=== PATIENT | male | born 1945 | race Caucasian/White ===

== ENCOUNTER 2016-09-01 01:15 | Day surgery (SDC) | payer MEDICARE, OTHER ==
[2016-09-01] VITALS (15 sets, daily range): BP systolic 84–132; BP diastolic 48–88; PULSE 56–92; RESP 12–20; O2SAT 93–98
[~2016-09-01] VITALS: Ht 180.3 cm; Wt 93.8 kg
[~2016-09-01 01:15] MED LIST: ASPI325T32 PO; ATRV10T PO; CHOL200047 PO; CYAN10008 PO; DOFE0.25 PO; EZET10TA PO; MAGN250T37 PO; MULT-1073 PO; TELM80TA PO; VIT1CAPS8 PO; VITA400C66 PO; WARF10TA4 PO; WARF7.5T4 PO; ZINC50TA4 PO; ZLP10T PO
[2016-09-01] MEDS ORDERED: EPHEDrine/NS 5 mg/mL 5 mL Syringe ONE (01:16)
[2016-09-01] MEDS ORDERED: Ketamine 10 mg/mL 20 mL Inj ONE (01:16)
[2016-09-01] MEDS ORDERED: Rocuronium 10 mg/mL 5 mL Inj ONE (01:16)
[2016-09-01] MEDS ORDERED: Dexamethasone 4 mg/mL Inj ONE (01:16)
[2016-09-01] MEDS ORDERED: Phenylephrine/NS 100 mCg/mL 10 mL Syringe IVPUSH ONE (01:16)
[2016-09-01] MEDS ORDERED: Ondansetron 2 mg/mL 2 mL Inj ONE (01:16)
[2016-09-01] MEDS ORDERED: Propofol 10,000 mCg/mL 20 mL Inj ONE (01:16)
[2016-09-01] MEDS ORDERED: Benzoc-Butamben-Tetraca Spray 20 Gm Spray TOPICAL PRN (06:15)
[2016-09-01 06:28] LABS: BASOPHILS % (AUTO) 0.3 % (0-3); EOSINOPHILS % (AUTO) 4.8 % (0-5); MONOCYTES % (AUTO) 13.7 % (4-12); Mean Corpuscular Hemoglobin 31.4 pg (27.0-35.0); Mean Corpuscular Volume 93.6 fL (81-100); NEUTROPHILS % (AUTO) 51.7 % (40-74); Platelet Count 246 bil/L (150-400)
--- NOTE | 2016-09-01 06:39 | NUR ---
Patient admitted for atrial fibrillation ablation with Dr mcdonald. Pt is accompanied by his .
[2016-09-01 06:47] LABS: INR 2.09 ratio
[2016-09-01] MEDS ORDERED: Lactated Ringer's 500 ML IV PRN (07:52)
[2016-09-01] MEDS ORDERED: Lactated Ringer's 1,000 ML IV SCH (07:52)
--- NOTE | 2016-09-01 07:53 | PCM.HPANE ---
Patient Data Surgeon Admitting Provider: Attending Provider:Andrew Floyd MD Primary Care Physician:Suzanna Cedillo DO Other Provider:Jordan Nuñez Anesthesia Reason for Visit Persistant Atrial Fibrillation Ht/WT & BMI Height (Feet): 5 Height (Inches): 11.00 Weight (Kilograms): 90.900 Body Mass Index 28.06 Allergies Coded Allergies: No Known Allergies (Unverified , 05/24/16) Past Anesthesia History Anesthesia History: Positive for:: Abnormal Airway, Anesthesia Reactions, Difficult Intubation, Fam Anesthesia Reaction, Fam Malignant Hypertherm, Malignant Hyperthermia Diabetes History Hx Diabetes?: No MRSA MRSA: No Medications Blood Thinner: Coumadin Hypertension Medication: No Home Meds Incl Beta Duke: No Active Scripts Dofetilide (Tikosyn)250 Mcg Nunczqy780 Mcg PO Q12 #60 CAPSULE Ref 6 Prov:Catarino Rivas PA-C 03/27/16 Reported Medications Warfarin Sodium 10 Mg Wtrpxg70 Mg PO Mondays 30 Days Ref 0 MON,TUE,Tue05/21/16 Warfarin Sodium 7.5 Mg Tablet7.5 Mg PO A 30 Days Ref 0 SAT,SUN,TU,TH02/11/16 Cyanocobalamin (Vitamin B-12) (Vitamin B-12)1,000 Mcg Tablet1,000 Mcg PO DAILY 02/11/16 Zinc Gluconate (Zinc)50 Mg Chytfi06 Mg PO DAILY 02/10/16 Ezetimibe (Zetia)10 Mg Mergxt73 Mg PO DAILY 30 Days Ref 0 02/10/16 Vitamin E Acetate (Vitamin E)400 Unit Ssztxmf317 Unit PO DAILY 02/10/16 Cholecalciferol (Vitamin D3) (Vitamin D3)2,000 Unit Capsule2,000 Unit PO DAILY 02/10/16 Vit C/Vit E/Lutein/Min/[place]-3 (Ocuvite Softgel)1 Each Capsule1 Each PO 02/10/16 Telmisartan (Micardis)80 Mg Sseume73 Mg PO DAILY 02/10/16 Magnesium Oxide 250 Mg Cpjxgq509 Mg PO DAILY 02/10/16 Atorvastatin (Lipitor)10 Mg Tab10 Mg PO DAILY Ref 0 02/10/16 Multivits-Min/FA/Lycopene/Lut (Centrum Silver Tablet)1 Each Tablet1 Each PO DAILY 02/10/16 Aspirin 325 Mg Tjyong555 Mg PO DAILY #1 BOTTLE 02/10/16 Zolpidem (Ambien)10 Mg Lszdxj03 Mg PO HS PRN For Insomnia Ref 0 02/10/16 History History of ENT Problems?: Yes HEENT History: Positive for:: Abnormal Airway Cataracts (SURGERY TO BOTH EYES) Difficult Intubation Hx of Heart Problems?: Yes Cardiovascular History: Positive for:: Edema (mainly left leg) Hypertension Irregular Heartbeat (ATRIAL FIBRILLATION) Denies:: Heart Murmur Hx of Respiratory Problem?: Yes Respiratory History: Positive for:: Dyspnea (EXERTIONAL) Denies:: Asthma Tuberculosis Hx Neurologic Problems?: No Hx of GI Problems?: No Hx of Psycho/Social Problems?: No Hx Surgeries?: Yes (CATARACT,APPENDECTOMY,SEED IMPLANT, ORCHIECTOMY) Hx Any Other Health Problems?: Yes Other History: Positive for:: Cancer (PROSTATE) Hospitalization (TIKOSYN LOADING) Denies:: Thyroid Disease History Blood Transfusions: Positive for:: Accept Blood Products? Denies:: Blood Transfuse Reaction Blood Transfusions Hx Diabetes: No Hx Alcohol Use: Yes (occassional)Hx Substance Use: No Smoking Status: Former Smoker Have You Smoked inLast 12 mo: No Stop/Bang Treated for Sleep Apnea?: Yes Do You Have a CPAP Machine?: Yes KUNAL Risk Assessment: High Risk, =/>3 Yes Risk Assessment Category Category 1A: Patient has history of documented sleep apnea, and HAS NOT received any narcotic, sedative or anesthesia administration during this stay. Category 1B: Patient has history of documented sleep apnea, and HAS received any narcotic , sedative or anesthesia administration during this stay Category 2: Patient has SUSPECTED Obstructive Sleep Apnea, and HAS received any narcotic , sedative or anesthesia administration during this stay. Category 3: Patient has SUSPECTED Obstructive Sleep Apnea and HAS NOT received narcotic, sedative or anesthesia administration during this stay. Category 4: Outpatient in Procedural Areas with known sleep apnea or who screen positive for High Risk via the STOP/BANG questionnaire. Exam Exam Vital Signs Vital Signs Date Time Temp Pulse Resp B/P Pulse Ox O2 Delivery O2 Flow Rate FiO2 09/01/16 06:31 36.5 75 20 120/82 98 Room Air General Appearance: Oriented X3 HEENT/AIRWAY: MP 2 Lungs: Normal Air Movement Heart: Regular Rate/Rhythm Meds/Labs/Diagnostics Labs Test 09/01/16 06:20 White Blood Count 6.7th/mm3 (3.8-10.1) Red Blood Count 4.56mil/mm3 (4.40-5.80) Hemoglobin 14.3g/dL (13.8-17.2) Hematocrit 42.7% (41.0-50.0) Mean Corpuscular Volume 93.6fL (81-100) Mean Corpuscular Hemoglobin 31.4pg (27.0-35.0) Mean Corpuscular Hemoglobin Concent 33.5% (32.0-37.0) Red Cell Distribution Width 13.1% (12.3-15.4) Platelet Count 246bil/L (150-400) Neutrophils (%) (Auto) 51.7% (40-74) Lymphocytes (%) (Auto) 29.2% (14-46) Monocytes (%) (Auto) 13.7% (4-12) Eosinophils (%) (Auto) 4.8% (0-5) Basophils (%) (Auto) 0.3% (0-3) Prothrombin Time 22.7sec (8.1-12.5) Prothromb Time International Ratio 2.09ratio Sodium Level 134mEq/L (134-144) Potassium Level 4.9mEq/L (3.5-5.2) Chloride Level 101mEq/L (97-108) Carbon Dioxide Level 18mmol/L (18-29) Blood Urea Nitrogen 52mg/dL (8-27) Creatinine 1.34mg/dL (0.76-1.27) Estimat Glomerular Filtration Rate 56mL/min (>59) Glucose Level 85mg/dL (60-99) Calcium Level 8.7mg/dL (8.5-10.1) Plan Impression Patient chart reviewed, patient interviewed and anesthestic plan with risks, benefits, and alternatives discussed, and informed consent obtained. ASA Physical Status: ASA3 Severe Disease Anesthetic Support Modalities: Arterial Line Anesthetic Plan: GA Bene/Risks/Altern/Consents: Yes HP Complete Prior to Induction: Yes Georgi Bonner MD Sep 01, 2016 07:53
[2016-09-01] MEDS ORDERED: HYDROmorphone 1 mg/mL Inj IVPUSH PRN (07:55)
[2016-09-01] MEDS ORDERED: fentaNYL-PF 50 mCg/mL 2 mL Inj IVPUSH PRN (07:55)
[2016-09-01] MEDS ORDERED: Dexamethasone 4 mg/mL Inj IVPUSH PRN (07:55)
[2016-09-01] MEDS ORDERED: EPHEDrine Sulfate 50 mg/mL Inj IVPUSH PRN (07:55)
[2016-09-01] MEDS ORDERED: Ondansetron 2 mg/mL 2 mL Inj IVPUSH PRN (07:55)
[2016-09-01] MEDS ORDERED: Phenylephrine 10,000 mCg/mL Inj IVPUSH PRN (07:55)
[2016-09-01] MEDS ORDERED: MetoCLOpramide 5 mg/mL 2 mL Inj IVPUSH PRN (07:55)
[2016-09-01] MEDS ORDERED: WARF5TAB7 PO (07:59)
[2016-09-01] MEDS ORDERED: Heparin 25,000 Unit/500 mL 0.45% NS Premix IV ONE (08:09)
[2016-09-01] MEDS ORDERED: 0.9% Sodium Chloride 1,000 ML ONE (08:09)
[2016-09-01] MEDS ORDERED: Heparin 1,000 Unit/mL 10 mL Inj ONE (08:46)
[2016-09-01] MEDS ORDERED: Heparin 5,000 Units/500 mL NS Premix IV ONE (09:11)
[2016-09-01] MEDS ORDERED: Heparin 1,000 Units/500 mL NS Premix IV ONE ×2 (09:21→09:28)
--- NOTE | 2016-09-01 11:30 | DRSVH ---
[facility] [address] [place] [address] Echocardiogram Report Name: SHABBIR MEDEL CStudy Date : 09/01/2016 Height: 74 in Hospital Exam Location: [facility] Weight: 218 lb Gender: Male BSA: 2.3 m2 : 1945 Age: 71 yrs BP: 103/59 mmHg Reason For Study: AFIB Ordering Physician: MARY LQUUE Performed By: Justin Valdez Interpretation Summary The left ventricle is normal in size. The ejection fraction is estimated to be 50-55%. There are no focal wall motion abnormalities. The right ventricle is normal in size and function. Right ventricular systolic pressure is estimated to be 24 mmHg plus the clinically estimated CVP which cannot be estimated on this exam. Spontaneous contrast in LA. No left atrial mass or thrombus visualized. No thrombus is detected in the left atrial appendage. There is mild mitral regurgitation. There is no other significant valvular heart disease. The ascending aorta is mildly enlarged. Procedure: Informed consent for Transesophageal Echocardiogram, and use of a contrast agent as needed, was obtained prior to the procedure. The patient was brought to the cardiac catheterization lab in a fasting state. Sedation was managed by anesthesiologist; see anesthesiology notes for details. A multifrequency, multiplane transesopheageal echocardiographic endoscope was inserted and manipulated in the standard fashion to achieve multiplane views. The transesophageal probe was passed without difficulty. A 2D transesophageal echocardiogram with spectral and color flow Doppler was performed. The usual views were obtained; basal, mid-esophageal, transgastric and aortic views. The patient's vital signs, including blood pressure, heart rate, pulse oximetry and cardiac rhythm were monitored throughout the procedure and remained stable. The patient tolerated the procedure well without evidence of orophangeal or esophageal trauma. Comparison is made with the echocardiogram of 03/24/16. The patient was in atrial fibrillation with controlled ventricular rate during the exam. There were no complications. Left Ventricle: The left ventricle is normal in size. The ejection fraction is estimated to be 50-55%. There are no focal wall motion abnormalities. Assessment of diastolic parameters indicates a relaxation abnormality of the left ventricle, consistent with normal filling pressures. Right Ventricle: The right ventricle is normal in size and function. Atria: Spontaneous contrast in LA. No left atrial mass or thrombus visualized. No thrombus is detected in the left atrial appendage. The interatrial septum is intact with no evidence for an atrial septal defect. There is no Doppler evidence for an interatrial shunt. Mitral Valve: The mitral valve is normal in structure and function. There is mild mitral regurgitation. Aortic Valve: The aortic valve is trileaflet. The aortic valve opens well. No aortic regurgitation is present. Tricuspid Valve: The tricuspid valve is normal. There is trace tricuspid regurgitation. Right ventricular systolic pressure is estimated to be 24 mmHg plus the clinically estimated CVP which cannot be estimated on this exam. Pulmonic Valve: The pulmonic valve leaflets are thin and pliable; valve motion is normal. There is no pulmonic valvular regurgitation. There is no other significant valvular heart disease. Great Vessels: The ascending aorta is mildly enlarged. The IVC has a measurement of 23 mm. Pericardium/ Pleura: The pericardium appears normal. Doppler Measurements & Calculations TR max christina: 243.3 cm/sec TR max P.7 mmHg Reading Physician:CRISTHIAN
[2016-09-01] MEDS ORDERED: Heparin 1,000 Unit/1,000mL NS Premix IV ONE (11:40)
[2016-09-01] MEDS ORDERED: Protamine Sulfate 10 mg/mL 5 mL Inj ONE (11:43)
[2016-09-01] MEDS ORDERED: HYDROcodone-APAP 5-325 mg Tablet PO PRN (12:10)
--- NOTE | 2016-09-01 13:19 | PROCED ---
[address] [address] PROCEDURE NOTE PATIENT: SHABBIR MEDEL : 1945 MR#: [id number] ADMIT: 09/01/2016 JOB ID: [id number] DATE OF SERVICE: 09/01/2016 PREOPERATIVE DIAGNOSIS(ES): Persistent atrial fibrillation. POSTOPERATIVE DIAGNOSIS(ES): Persistent atrial fibrillation. PROCEDURES PERFORMED: 1. Comprehensive electrophysiology study with left atrial pacing recording via the coronary sinus catheter. 2. Three-dimensional electroanatomic mapping using the CARTO 3 system. 3. Atrial fibrillation ablation with pulmonary vein isolation. 4. Atrial flutter ablation (cavotricuspid isthmus ablation; additional atrial focus ablation). 5. Intracardiac echocardiography. 6. Direct current cardioversion. 7. Barium esophagram. 8. Fluoroscopy. SURGEON: Andrew Floyd MD, electrophysiology attending WHEELCHAIR VAN DRIVER: Catarino Red PA-C. ANESTHESIA: General endotracheal anesthesia was undertaken for this case. INDICATION: The patient is a pleasant 71-year-old man with preserved LV function and persistent atrial fibrillation status post previous pulmonary vein isolation procedure. He has had recurrence of his dysrhythmia and is symptomatic. After discussion of the risks and benefits of catheter based mapping and ablation, he opted to proceed. PROCEDURAL DESCRIPTION: Following informed and signed consent, the patient was taken to the EP laboratory in the fasting nonsedated state, where he was prepped and draped in the usual sterile fashion. He underwent a preprocedural transesophageal echocardiogram by Dr. Moralez confirming lack of intracardiac thrombus. Please see separate dictated report for the details of that procedure. The bilateral groins were then infiltrated with 1% lidocaine; then, using modified Seldinger technique, two 8-Senegalese sheaths were inserted through the right femoral vein, a 7- and 10.5-Senegalese sheath were inserted through the left femoral vein, and under fluoroscopic guidance a deflectable decapolar catheter was advanced to the coronary sinus with the most proximal bipoles at the os of the sinus. An intracardiac echocardiography probe was advanced to the RV outflow tract. The RV outflow tract was used to visualize the pericardial space. No effusion was noted. ICE probe was pulled back into the right atrium and used to visualize the interatrial septum in preparation for transseptal puncture. Two transseptal punctures were performed in an identical fashion. Each of the short 8-Senegalese sheaths in the right groin was exchanged over a long wire for a Contreras sheath dilator and a Azusa Brockenbrough needle. The entire system was then used to engage the interatrial septum. Then, under pressure, fluoroscopic and ICE guidance, the septum was traversed twice to deploy the two Contreras sheaths into the left atrium. The patient was heparinized for a goal ACT of 350 to 400 seconds for the entire time we were in the left atrium following the first and preceding the second transseptal puncture. The resurvey of the pericardial space showed no evidence of effusion. Through the two Contreras sheaths an FJ curved bidirectional Smart Touch irrigated ablation catheter was passed, as was a 20 pole PentaRay catheter. A three-dimensional electroanatomic map of the left atrium and four pulmonary veins was created using the CorMedix 3 system. A voltage map was also created. High voltage electrograms were targeted for ablation around each of the four pulmonary veins. The patient was cardioverted with a 200 joule biphasic shock. He reverted to atrial fibrillation and had to be converted a 2nd time. Entrance and exit block was confirmed in all four pulmonary veins. We then went back into the right atrium and I exchanged the two long Contreras sheaths over a long wire for two short nine-Senegalese sheaths. We exchanged the PentaRay catheter for a 20 pole Livewire catheter which was then used to encircle the tricuspid anulus. Pacing was undertaken from the coronary sinus os and a linear series of ablations was performed from the ventricular to the IVC aspect of the cavotricuspid isthmus at the 6 o'clock position. Ultimately the medial to lateral block and lateral to medial block was confirmed. During the course of this study we did complete a comprehensive electrophysiology study with right atrial pacing recording, right ventricular pacing recording, His bundle recording, and left atrial pacing recording. The patient's heparin was reversed with protamine. All catheters and sheaths were removed. Manual pressure was held for hemostasis. The patient was transferred to the [facility] for monitoring and bedrest. COMPLICATIONS: None. ESTIMATED BLOOD LOSS: 30-40 cc. FINDINGS: 1. Baseline rhythm is atrial fibrillation. Post ablation and cardioversion he is in sinus rhythm. Bradycardic, with a heart rate in the low 40s. MI interval 92 msec, QRS 81 msec. 2. Intracardiac intervals: AH interval 99 msec, HV 52 msec. 3. Retrograde conduction: VA Wenckebach is seen at 560 msec. Atrial activation is concentric. 4. Pulmonary vein isolation as described above, with entrance and exit block in all four pulmonary veins. 5. Cavotricuspid isthmus ablation as described above with vital bidirectional block. Specifically, transisthmus time is 242 msec in medial to lateral direction and 232 msec in lateral to medial direction. IMPRESSION: Successful pulmonary vein isolation and cavotricuspid isthmus ablation. PLAN: 1. Bed rest x4 hours. 2. Continue warfarin and dofetilide. 3. Protonix 40 mg p.o. daily x1 month. 4. Monitoring overnight. 5. Anticipate discharge tomorrow. 6. Follow up with myself or Catarino Rivas in the clinic in 3-4 weeks, with a followup at the three month faina. ATTENDING STATEMENT: Andrew Floyd MD, electrophysiology attending, was present for and supervised/performed all aspects of this procedure.
--- NOTE | 2016-09-01 13:38 | NUR ---
12 lead EKG completed, patient appears to have gone from sinus bradycardia rhyth immediately upon return from stucco laborer to atrial fibrillation rhythm.Patient is anxious to know. Dr Floyd consulted and his interpretation is atrial fibrillation which is conveyed to patient.
--- NOTE | 2016-09-01 15:22 | NUR ---
Report called to Flex jamison R.N. Patient remains stable, bilateral groin access sites without bleeding or hematoma.He has eaten a late lunch without any difficulty. Remains in atrial fibrillation.
--- NOTE | 2016-09-01 16:12 | NUR ---
Pt tx to room 2001 in stable condition. Bilateral groin sites intact, remains in atrial fibrillation.Handoff at bedside to denise jamison r.N.
--- NOTE | 2016-09-01 17:10 | PCM.ANEP1 ---
Post Anesthesia Phase 1 PACU Phase 1 Assessment Vital Signs Vital Signs Date Time Temp Pulse Resp B/P Pulse Ox O2 Delivery O2 Flow Rate FiO2 09/01/16 16:35 91 09/01/16 16:17 36.7 91 16 113/76 97 Room Air 09/01/16 15:55 92 17 121/70 Room Air 09/01/16 15:00 92 16 126/81 Room Air 09/01/16 14:30 86 16 123/74 95 Room Air 09/01/16 13:59 89 18 116/70 94 Room Air 09/01/16 13:45 85 15 110/65 94 Room Air 09/01/16 13:30 87 15 112/67 93 Room Air 09/01/16 13:15 85 15 106/63 93 Room Air 09/01/16 13:00 36.9 65 19 90/55 93 Room Air 09/01/16 12:55 56 20 84/48 95 Room Air 09/01/16 12:50 62 13 89/53 95 Room Air Anesthetic Administered: GA Level of Alertness: Awake, talking Pain: No Nausea or Vomiting: No Oxygen Delivery: Room Air Lungs: Normal Air Movement Georgi Bonner MD Sep 01, 2016 17:10
--- NOTE | 2016-09-01 17:11 | PCM.ANEP2 ---
Post Anesthesia Evaluation ASA/CMS Post Anesthesia VS in Patient's Normal Range?: Yes Resp Stable; Airway Patent?: Yes CV Function & Hydration Stable: Yes Mental Status Recovered?: Yes Pain control Satisfactory?: Yes N/V Control Satisfactory?: Yes Georgi Bonner MD Sep 01, 2016 17:11
[2016-09-01] MEDS ORDERED: 0.9% Sodium Chloride 250 ML IV ONE (18:28)
[2016-09-01] MEDS ORDERED: 0.9% Sodium Chloride 250 ML IV SCH (18:30)
--- NOTE | 2016-09-01 18:42 | NUR ---
Arrived to unit Pt arrived to [facility] room 2001 at ~1615 from [facility]. Pt denies pain, groin sites stable. Pt in a flutter per auto electrical technician. Pt off bedrest at 1700 per instructions in report after blake catheter removed, Pt tolerated well and groin sites remained unchanged after ambulation.
--- NOTE | 2016-09-01 19:30 | NUR ---
Groin site and heart rhythm. Patient was resting comfortably in the chair went I came on shift. Patient reports that he is feeling well and that his groin sites are feeling well. Patient denies pain at groin site and denies back pain. No signs of bleeding or hematoma present. vitals stable and patient A/Ox4. Patient tele show possible sinus rhythm vs possible aflutter. Rhythm is difficult to interpret due to low voltage. Heart sounds are regular with accusation and CMS is intact to baseline in all extremities. Patient is at debbi in the room and reporting no needs at this time.
[2016-09-02 03:00] VITALS: BP 122/79; PULSE 79; RESP 15; O2SAT 94
[2016-09-02 03:03] LABS: INR 2.8 ratio
[2016-09-02 04:20] VITALS: PULSE 74
[2016-09-02] MEDS ORDERED: Pantoprazole 40 mg ER24 Tablet PO SCH (06:30)
[2016-09-02 07:49] VITALS: BP 122/87; PULSE 78; RESP 12; O2SAT 97
[2016-09-02 08:00] VITALS: PULSE 79
--- NOTE | 2016-09-02 08:21 | PCM.DIMED ---
Discharge Instructions Date of Service Sep 02, 2016 Dates of Hospitalization Discharge Diagnosis Discharge Diagnosis Persistent Atrial Fibrillation Atypical Atrial flutter Diet Heart Healthy Activity Other (To prevent infection, do not sit in a bath tub, hot tub or pool for one week. To prevent bleeding, do not lift, push or pull more than 10 lbs for one week.) Call your provider Fever or Chills, Bleeding, Excessive diarrhea Patient Instructions Follow-up in: Other Mid-level Provider (F9): Catarino Rivas PA-C Follow-up with Mid-level in: 5 weeks Catarino Rivas PA-C Sep 02, 2016 08:21
[2016-09-02] MEDS ORDERED: PANT40TA3 PO (08:27)
[2016-09-02] MEDS ORDERED: Vitamins C,E, Omega-3, Mineral Tablet PO SCH (08:30)
--- NOTE | 2016-09-02 08:55 | DIS ---
[address] [address] DISCHARGE SUMMARY PATIENT: SHABBIR MEDEL : 1945 MR#: [id number] ADMIT: 09/01/2016 JOB ID: [id number] DIS: REASON FOR ADMISSION: Atrial fibrillation ablation procedure. CHIEF COMPLAINT: Persistent palpitations from atrial fibrillation, with exertional dyspnea and fatigue. BRIEF HISTORY: The patient is a pleasant 71-year-old man with a structurally normal heart but persistent atrial fibrillation, for which he had undergone ablation earlier in 2016. The arrhythmia has recurred postprocedurally, and he has required two previous cardioversions and has been maintained on dofetilide 250 mcg b.i.d. Despite this, he continues to have atrial fibrillation and atypical atrial flutter, with symptoms of exertional fatigue and dyspnea. He denies lightheadedness or near syncope, chest pain or discomfort. He is anticoagulated with warfarin. He was admitted for a second atrial fibrillation ablation procedure. COURSE IN HOSPITAL: The patient was admitted through the [facility] and taken to the catheterization laboratory, where he was put under general anesthesia by the anesthesiologist. He then underwent a CLEMENT[place], and left atrial thrombus was ruled out. The ablation procedure was then undertaken and completed without incident. He was awakened from anesthesia, the femoral sheaths were removed and hemostasis was obtained. The patient was transferred back to the [facility] for recovery from sedation and then taken up to the [facility] for overnight cardiac telemetry and observation. He did well overnight, he had no bleeding from the femoral venous puncture sites and was ambulatory in the morning without difficulty. He denied any chest discomfort, shortness of breath, or pain at the puncture sites. He felt well for discharge home. DISPOSITION: The patient was discharged home in good condition with a followup appointment at the [facility] Cardiology office in one month. Also, plans are being made for a cardioversion in about two weeks. He will follow his heart healthy diet and take medications as prescribed. He was advised not to sit in a bathtub, hot tub, or pool for one week to prevent infection, nor to lift, push, or pull more than 10 pounds for one week to prevent bleeding. DISCHARGE MEDICATIONS: 1. Aspirin 325 mg daily. 2. Atorvastatin 10 mg daily. 3. Vitamin D3, 2000 units daily. 4. Vitamin B12, 1000 mcg daily. 5. Dofetilide 250 mcg q.12 h. 6. Zetia 10 mg daily. 7. Magnesium oxide 250 mg daily. 8. Multivitamin 1 daily. 9. Telmisartan 80 mg daily. 10. Vitamin C Ocuvite soft gel 1 capsule daily. 11. Vitamin E 400 units daily. 12. Warfarin 10 mg alternating with 5 mg as directed by his anticoagulation clinic. 13. Zinc 50 mg daily. 14. Zolpidem 10 mg q.h.s. FINAL DIAGNOSES: 1. Persistent atrial fibrillation. 2. Atypical atrial flutter.
--- NOTE | 2016-09-02 09:58 | NUR ---
Discharge Pt just discharged to home with family. Pt given cardiac cath booklet. Pt's IV access D/C'd and intact X2. Pt instructed to f/u with Catarino Rivas on 10/07/16 at 1600, Pt verbalized that he had started discussion with Dr. Floyd about a cardioversion outpatient and that he would f/u. Pt verbalized understanding of all discharge instructions. All belongings accompanied Pt at time of discharge.
== END 2016-09-02 09:35 | disposition home or self-care (01) ==
LOC: SOUO 01:15 → PCC 16:19 → SOUO 09-02 09:35
PROVIDERS: ATTEND Internal Medicine Cardiovascular Disease
DX: I48.1 Persistent atrial fibrillation (principal); I48.4 Atypical atrial flutter; Z79.01 Long term (current) use of anticoagulants; Z79.82 Long term (current) use of aspirin; Z79.84 Long term (current) use of oral hypoglycemic drugs
CPT/HCPCS: 36415; 80048; 85025; 85610; 92960; 93005; 93613; 93656; 93657; 93662; C1730; C1731; C1732; C1759; C1769; C1893; C1894; C8925; J1100; J1644; J2250; J2370; J2405; J2720; J7040

== ENCOUNTER 2016-09-21 01:07 | Day surgery (SDC) | payer MEDICARE, OTHER ==
[~2016-09-21] VITALS: Ht 180.3 cm; Wt 90.9 kg
[~2016-09-21 01:07] MED LIST changes: +WARF5TAB7 PO; -WARF7.5T4 PO
[2016-09-21 09:52] VITALS: BP 122/71; PULSE 75; RESP 16; O2SAT 99
[2016-09-21 09:54] LABS: BASOPHILS % (AUTO) 0.3 % (0-3); EOSINOPHILS % (AUTO) 2.8 % (0-5); MONOCYTES % (AUTO) 11.2 % (4-12); Mean Corpuscular Volume 93.8 fL (81-100); NEUTROPHILS % (AUTO) 64.5 % (40-74); Platelet Count 261 bil/L (150-400)
[2016-09-21] MEDS ORDERED: 0.9% Sodium Chloride 1,000 ML ONE (10:03)
[2016-09-21] MEDS ORDERED: Methohexital 10 mg/mL 50 mL Inj ONE (10:03)
[2016-09-21 10:11] LABS: INR 3.73 ratio
[2016-09-21 10:16] VITALS: BP 137/99; PULSE 85; RESP 16; O2SAT 99
[2016-09-21 10:19] VITALS: BP 131/69; PULSE 63; RESP 16; O2SAT 99
[2016-09-21 10:22] VITALS: BP 117/70; PULSE 61; RESP 16; O2SAT 99
[2016-09-21 10:24] VITALS: BP 105/62; PULSE 63; RESP 16; O2SAT 99
[2016-09-21 10:38] VITALS: BP 104/58; PULSE 60; RESP 16; O2SAT 99
--- NOTE | 2016-09-21 12:01 | NUR ---
Pt discharged to home, ambulatory, accompanied by spouse. Pt in SR at time of d/c, VSS. Pt's IV discontinued intact, given all discharge instructions and follow up appt. Pt had no further questions at time of d/c.
--- NOTE | 2016-09-21 20:30 | PROCED ---
[address] [address] PROCEDURE NOTE PATIENT: SHABBIR MEDEL : 1945 MR#: [id number] ADMIT: 09/21/2016 JOB ID: [id number] DATE OF SERVICE: 09/21/2016 PREOPERATIVE DIAGNOSIS(ES): Atrial fibrillation. POSTOPERATIVE DIAGNOSIS(ES): Sinus rhythm. SURGEON: Andrew Floyd MD PROCEDURES PERFORMED: Direct current cardioversion. SEDATION: 1 mg of Versed and 35 mg of Brevital were utilized for appropriate level of sedation. INDICATIONS: The patient is a pleasant 71-year-old man with recurrent atrial fibrillation status post ablation. After discussion of risks and benefits of cardioversion, he opted to proceed. PROCEDURE DESCRIPTION: Informed consent was obtained and the patient was taken to the procedure room where defibrillator patches were placed in the anterior and posterior positions. After adequate sedation, a 200 joule biphasic synchronous shock was used to convert him to sinus rhythm. He will be allowed to recover and be discharged home for close followup. COMPLICATIONS: None. ESTIMATED BLOOD LOSS: None. IMPRESSION: Successful direct current cardioversion. PLAN: 1. Recovery and discharge from [facility]. 2. Continue current medication regimen. 3. Follow up with me in clinic in four weeks. ATTENDING STATEMENT: Andrew Floyd MD, electrophysiology attending, was present for and supervised/performed all aspects of this procedure.
== END 2016-09-21 23:59 | disposition home or self-care (01) ==
LOC: SOUO 01:07
PROVIDERS: ATTEND Internal Medicine Cardiovascular Disease
DX: I48.1 Persistent atrial fibrillation (principal); Z79.899 Other long term (current) drug therapy; Z79.01 Long term (current) use of anticoagulants
CPT/HCPCS: 36415; 80048; 85025; 85610; 92960; 93005; 99152; J2250; J7030

== ENCOUNTER → 2017-03-21 | Day surgery (SDC) | payer MEDICARE, OTHER ==
[2017-03-21] VITALS (12 sets, daily range): BP systolic 121–158; BP diastolic 61–88; PULSE 52–70; RESP 14–17; O2SAT 98–99
[~2017-03-21] MED LIST changes: +0.9% Sodium Chloride 500 ML IV ONE; +AMIO200T PO; +Methohexital 10 mg/mL 50 mL Inj IV ONE
[2017-03-21 15:26] LABS: BASOPHILS % (AUTO) 0.1 % (0-3); EOSINOPHILS % (AUTO) 2.2 % (0-5); MONOCYTES % (AUTO) 10.4 % (4-12); Mean Corpuscular Hemoglobin 31.4 pg (27.0-35.0); Mean Corpuscular Volume 94.5 fL (81-100); NEUTROPHILS % (AUTO) 63.7 % (40-74); Platelet Count 233 bil/L (150-400)
--- NOTE | 2017-03-21 15:40 | NUR ---
Admitted for an elective cardioversion for a documented atrial fib. Rates is in the 70's.
[2017-03-21 15:41] LABS: INR 2.1 ratio
--- NOTE | 2017-03-21 16:59 | NUR ---
Successful Cardioversion - 200 Joules. Recovery completed - follow up with Catarino CISNEROS 04/15/17. 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 Reviewed D/C instructions with patient and patient's , "Nilsa".
--- NOTE | 2017-03-22 03:08 | PROCED ---
[address] [address] PROCEDURE NOTE PATIENT: SHABBIR MEDEL : 1945 MR#: [id number] ADMIT: 03/21/2017 JOB ID: [id number] DATE OF SERVICE: 03/21/2017 PREOPERATIVE DIAGNOSIS(ES): Atrial fibrillation. POSTOPERATIVE DIAGNOSIS(ES): Sinus rhythm. PROCEDURE PERFORMED: Direct current cardioversion. SURGEON: Andrew Floyd MD, wool mixer attending. SEDATION: Versed 1 mg and a total of 70 mg of Brevital were utilized in divided doses for appropriate level of sedation. INDICATIONS: The patient is a pleasant 71-year-old man with atrial fibrillation who has undergone ablation twice and persists in atrial fibrillation. He has been loaded with amiodarone and comes in for direct current cardioversion after discussion of risks and benefits. PROCEDURAL DESCRIPTION: Following informed signed consent, the patient was taken to the procedure suite in a fasting state where defibrillator patches were placed in the anterior and posterior positions. After adequate sedation, a 200 joule biphasic synchronized shock was used to convert to sinus rhythm. He will be allowed to recover and discharged home for close followup. COMPLICATIONS: None. ESTIMATED BLOOD LOSS: None. . IMPRESSION: Successful direct current cardioversion. PLAN: 1. Recovery and discharge from [facility]. 2. Continue amiodarone and warfarin. 3. Follow up with Catarino Rivas in the clinic in four weeks. ATTENDING STATEMENT: Andrew Floyd MD, wool mixer attending, was present for and supervised/performed all aspects of this procedure.
== END | disposition home or self-care (01) ==
LOC: SOUO 00:11
PROVIDERS: ATTEND Internal Medicine Cardiovascular Disease
DX: I48.1 Persistent atrial fibrillation (principal); Z79.899 Other long term (current) drug therapy; Z79.01 Long term (current) use of anticoagulants; Z98.890 Other specified postprocedural states; Z79.82 Long term (current) use of aspirin
CPT/HCPCS: 36415; 80048; 85025; 85610; 92960; 93005; 94799; 99152; J2250; J7040